=== PATIENT | female | born 1955 | race Caucasian/White ===

== ENCOUNTER → 2017-08-03 | Outpatient (CLI) | payer OTHER ==
[~2017-08-03] MED LIST: AMLO5; ATOR10; Aspirin EC81 MG PO; CHOL10002 PO; DOCU100 PO; INSDET100; INSULANPEN SC; IRBE150 PO; METF500C PO; METO25 PO; Multivitamin W1 EAC5 PO; Novolog100 UNIT/1 SC; OMEP20ER; OXYB5 PO; Roxicodone5 MG PO; VENL75ER
== END | disposition home or self-care (01) ==
LOC: LAB EV 17:16
DX: N39.0 Urinary tract infection, site not specified (principal)
CPT/HCPCS: 87086

== ENCOUNTER 2017-11-04 00:57 | Emergency (ER) | payer OTHER ==
[~2017-11-04] VITALS: Ht 172.7 cm; Wt 108.9 kg
[~2017-11-04 00:57] MED LIST changes: +Aspirin EC81 MG; -Aspirin EC81 MG PO; +CHOL10002; -CHOL10002 PO; -DOCU100 PO; -INSULANPEN SC; +METF500C; -METF500C PO; -METO25 PO; +Multivitamin W1 EAC5; -Multivitamin W1 EAC5 PO; +Novolog100 UNIT/1; -Novolog100 UNIT/1 SC; -OXYB5 PO; -Roxicodone5 MG PO
[2017-11-04] MEDS ORDERED: Roxicodone5 MG PO (03:28)
== END 2017-11-04 03:52 | disposition home or self-care (01) ==
LOC: ER 00:57
DX: S42.202A Unspecified fracture of upper end of left humerus, initial encounter for closed fracture (principal); W07.XXXA Fall from chair, initial encounter; Z79.4 Long term (current) use of insulin; Z79.899 Other long term (current) drug therapy; Z79.82 Long term (current) use of aspirin; Z79.84 Long term (current) use of oral hypoglycemic drugs; Z87.891 Personal history of nicotine dependence
CPT/HCPCS: 73030; 99283

== ENCOUNTER → 2017-11-16 | Outpatient (CLI) | payer OTHER ==
[~2017-11-16] MED LIST changes: +Roxicodone5 MG PO
== END | disposition home or self-care (01) ==
LOC: LAB 11:40 → LAB SHORT 11:40
DX: L02.212 Cutaneous abscess of back [any part, except buttock and flank] (principal)
CPT/HCPCS: 87070; 87205

== ENCOUNTER → 2018-05-25 | Outpatient (CLI) | payer OTHER ==
[~2018-05-25] MED LIST changes: -Aspirin EC81 MG; +Aspirin EC81 MG PO; -CHOL10002; +CHOL10002 PO; +DOCU100 PO; +INSULANPEN SC; -METF500C; +METF500C PO; +METO25 PO; -Multivitamin W1 EAC5; +Multivitamin W1 EAC5 PO; -Novolog100 UNIT/1; +Novolog100 UNIT/1 SC; +OXYB5 PO
[2018-05-25 13:12] LABS: Microalb/Creat Ratio UR, Rand 97.122 mg/g (0.000-30.000)
== END | disposition home or self-care (01) ==
LOC: LAB SHORT 10:30 → LAB 10:30 → LAB FUT 05-20 09:35
PROVIDERS: Internal Medicine
DX: E78.5 Hyperlipidemia, unspecified (principal); E87.6 Hypokalemia; G60.9 Hereditary and idiopathic neuropathy, unspecified; Z79.899 Other long term (current) drug therapy
CPT/HCPCS: 82043; 82570

== ENCOUNTER → 2018-07-14 | Outpatient (CLI) | payer OTHER ==
[2018-07-19 10:10] LABS: HPV 16 Negative (Negative); HPV 18 Negative (Negative); HPV OTHER HR TYPES Positive (Negative)
== END ==
LOC: LAB 12:36 → LAB SHORT 12:36
PROVIDERS: Nurse Practitioner Women's Health
DX: Z12.4 Encounter for screening for malignant neoplasm of cervix (principal); Z91.89 Other specified personal risk factors, not elsewhere classified
CPT/HCPCS: 87624; 87625; G0123

== ENCOUNTER → 2018-11-08 | Outpatient (CLI) | payer OTHER ==
[2018-11-08 08:41] LABS: Source, Urine Clean Catch
[2018-11-08 12:27] LABS: Appearance, Urine Cloudy (Clear); Bilirubin, Urine Neg (Neg); Blood, Urine 5+ (Neg); Glucose Qualitative, Urine 4+ (Neg); Ketones, Urine 1+ (Neg); Leukocyte Esterase, Urine 3+ (Neg); Nitrite, Urine Neg (Neg); Protein, Urine 2+ (Neg); Specific Gravity, Urine 1.015 (1.003-1.022); Urobilinogen, Urine NORM (Normal)
[2018-11-08 12:35] LABS: Color, Urine Yellow (P-Yellow)
[2018-11-08 12:37] LABS: White Blood Cells, Urine TNTC /hpf (0-5)
[2018-11-08 12:38] LABS: Amorphous Light (0-Heavy); Bacteria Many /hpf; Squamous Epithelial Cells Few /hpf (Few); Triple Phosphate Crystals Few /hpf
== END | disposition home or self-care (01) ==
LOC: LAB 08:40 → LAB SHORT 08:40
PROVIDERS: Internal Medicine
DX: R30.0 Dysuria (principal)
CPT/HCPCS: 81001; 87077; 87086; 87186

== ENCOUNTER → 2018-11-25 | Outpatient (CLI) | payer OTHER ==
[2018-11-25 11:43] LABS: Source, Urine Clean Catch
[2018-11-25 12:53] LABS: Bilirubin, Urine Neg (Neg); Blood, Urine Neg (Neg); Glucose Qualitative, Urine 4+ (Neg); Ketones, Urine 1+ (Neg); Leukocyte Esterase, Urine 1+ (Neg); Nitrite, Urine Neg (Neg); Protein, Urine 1+ (Neg); Specific Gravity, Urine 1.015 (1.003-1.022); Urobilinogen, Urine NORM (Normal)
[2018-11-25 14:35] LABS: Appearance, Urine Hazy (Clear); Color, Urine Yellow (P-Yellow)
[2018-11-25 14:36] LABS: Red Blood Cells, Urine 0-2 /hpf (0-2)
[2018-11-25 14:37] LABS: Bacteria Few /hpf; Squamous Epithelial Cells Mod /hpf (Few)
== END | disposition home or self-care (01) ==
LOC: LAB SHORT 11:42 → LAB 11:42
PROVIDERS: Internal Medicine
DX: N39.0 Urinary tract infection, site not specified (principal)
CPT/HCPCS: 81001; 87086

== ENCOUNTER → 2019-07-12 | Outpatient (CLI) | payer MEDICARE, OTHER ==
[2019-07-12 08:53] LABS: Source, Urine Clean Catch
[2019-07-12 10:27] LABS: Bilirubin, Urine Neg (Neg); Blood, Urine 1+ (Neg); Glucose Qualitative, Urine Neg (Neg); Ketones, Urine Neg (Neg); Leukocyte Esterase, Urine Neg (Neg); Nitrite, Urine Neg (Neg); Protein, Urine Neg (Neg); Urobilinogen, Urine NORM (Normal)
[2019-07-12 10:53] LABS: Appearance, Urine Clear (Clear); Color, Urine Yellow (P-Yellow)
[2019-07-12 10:54] LABS: Bacteria Rare /hpf; Red Blood Cells, Urine 0-2 /hpf (0-2); Squamous Epithelial Cells Mod /hpf (Few); White Blood Cells, Urine 0-2 /hpf (0-5)
== END | disposition home or self-care (01) ==
LOC: LAB FUT 07-11 14:25 → LAB 08:15 → LAB SHORT 08:15
PROVIDERS: Internal Medicine
DX: R32 Unspecified urinary incontinence (principal); Z79.899 Other long term (current) drug therapy
CPT/HCPCS: 81001

== ENCOUNTER 2019-07-15 10:51 | Emergency (ER) | payer MEDICARE, OTHER ==
[~2019-07-15] VITALS: Ht 167.6 cm; Wt 81.7 kg
[2019-07-15] MEDS ORDERED: SENNA LAXATIVE8.6 MG PO (12:13)
== END 2019-07-15 14:00 | disposition home or self-care (01) ==
LOC: ER 10:51
DX: K59.00 Constipation, unspecified (principal); I10 Essential (primary) hypertension; E11.9 Type 2 diabetes mellitus without complications; Z88.8 Allergy status to other drugs, medicaments and biological substances; Z79.899 Other long term (current) drug therapy; Z79.4 Long term (current) use of insulin; Z79.82 Long term (current) use of aspirin; Z86.73 Personal history of transient ischemic attack (TIA), and cerebral infarction without residual deficits; Z87.891 Personal history of nicotine dependence
CPT/HCPCS: 74018; 96374; 99283-25; J2405